=== PATIENT | female | born 1935 | race African-American/Black ===

== ENCOUNTER 2016-08-26 05:30 | Inpatient (IN) | payer MEDICARE ==
[~2016-08-26] VITALS: Ht 170.2 cm; Wt 83.0 kg
[~2016-08-26 05:30] MED LIST: ASPI-1093 PO; ATOR10TA84 PO; DOCU250C91 PO; PANT40TA25 PO; SENN-30 PO; VERA80 PO
[2016-08-26 06:01] LABS: GLUCOSE,POINT OF CARE 93 MG/DL (70-110)
[2016-08-26 06:21] LABS: BASOPHILS # (AUTO) 0.05 K/uL (0.00-0.20); BASOPHILS % (AUTO) 0.9 % (0.0-2.0); EOSINOPHILS # (AUTO) 0.14 K/uL (0.00-0.70); EOSINOPHILS % (AUTO) 2.45 % (1.0-6.0); HEMOGLOBIN 13.2 g/dL (12.0-16.0); LYMPHOCYTES # (AUTO) 1.9 K/uL (1.0-4.8); LYMPHOCYTES % (AUTO) 34.9 % (22.0-44.0); MEAN CORPUSCULAR HGB CONC 32.9 G/dL (31.0-37.0); MEAN CORPUSCULAR VOLUME 85 fL (80-100); MONOCYTES # (AUTO) 0.4 K/uL (0.1-1.0); NEUTROPHILS % (AUTO) 54.7 % (40.0-70.0); PLATELET COUNT (AUTO) 197 K/uL (150-450); RED BLOOD CELL COUNT(AUTO) 4.71 MIL/uL (4.00-5.20); RED CELL DISTRIBUTION WIDTH 17.4 % (11.5-14.5); WHITE BLOOD COUNT (AUTO) 5.5 K/uL (4.5-11.0)
[2016-08-26 06:31] LABS: ANION GAP 9 mmol/L (8-16); CALCIUM, TOTAL 9.4 mg/dL (8.8-10.5); CARBON DIOXIDE 29 mmol/L (22-29); CHLORIDE 106 mmol/L (98-107); CREATININE 0.96 mg/dL (0.60-1.30); GLOMERULAR FILTR. RATE CALC > 60 mL/min (>60); POTASSIUM 4.3 mmol/L (3.5-5.1); SODIUM SERUM 144 mmol/L (136-145); UREA NITROGEN, BLOOD 10 mg/dL (7-18)
[2016-08-26 06:37] LABS: ALBUMIN 3.2 g/dL (3.4-5.0); ASPARTATE AMINOTRANSFERASE 13 U/L (15-37); BILIRUBIN,TOTAL 0.3 mg/dL (0.1-1.0); CREATINE KINASE, TOTAL 39 U/L (26-192); TOTAL PROTEIN, SERUM 7.3 g/dL (6.4-8.2)
[2016-08-26 06:44] LABS: RBC MORPHOLOGY COMMENT ABNORMAL RBC MORPH
[2016-08-26 06:49] LABS: INR 1.1 (0.9-1.1); PROTHROMBIN TIME 11.1 SEC (9.4-11.6)
[2016-08-26 07:08] LABS: ALANINE AMINOTRANSFERASE 16 U/L (12-78)
[2016-08-26 07:26] LABS: B-TYPE NATRIURETIC PEPTIDE 12 pg/mL (0-100)
[2016-08-26 07:28] LABS: APPEARANCE,URINE CLOUDY (CLEAR); GLUCOSE, URINE (UA) NEGATIVE (NEGATIVE); KETONES,URINE NEGATIVE (NEGATIVE); LEUKOCYTE ESTERASE ,URINE SMALL (NEGATIVE); OCCULT BLOOD,URINE NEGATIVE (NEGATIVE); PROTEIN,URINE NEGATIVE (NEGATIVE)
[2016-08-26 07:43] LABS: ADD UA MICROSCOPIC YES
[2016-08-26 07:45] LABS: RBC,URINE None Seen /HPF (0-2)
[2016-08-26 07:46] LABS: SQUAMOUS EPITHELIAL CELL,UR Few /LPF (None Seen)
[2016-08-26] MEDS ORDERED: MAGNESIUM HYDROXIDE SUSPENSION 30 ML UDCUP PO PRN (19:15)
[2016-08-26] MEDS ORDERED: ACETAMINOPHEN 325 MG TABLET PO PRN (19:15)
[2016-08-26] MEDS ORDERED: ONDANSETRON HCL 4 MG/2 ML VIAL IVP PRN (19:15)
[2016-08-26] MEDS ORDERED: MORPHINE SULFATE 2 MG/ML SYRINGE IVP PRN (19:15)
[2016-08-26] MEDS ORDERED: SODIUM CHLORIDE 0.9% 1,000 ML IV ONE (19:15)
[2016-08-26] MEDS ORDERED: BISACODYL 10 MG RECTAL RECTAL SUPPOSITORY PR PRN (19:15)
[2016-08-26] MEDS ORDERED: HydrALAZINE HCL 20 MG/ML VIAL IVP PRN (19:15)
[2016-08-26] MEDS ORDERED: ZOLPIDEM TARTRATE 5 MG TABLET PO PRN (19:15)
[2016-08-26] MEDS ORDERED: HYDROCODONE/ACETAMINOPHEN 5-325 MG TABLET PO PRN (19:15)
[2016-08-26] MEDS ORDERED: CefTRIAXone 1 GM/DEXTROSE 50 ML IV SCH (20:00)
[2016-08-26 20:39] VITALS: BP 141/76
[2016-08-26] MEDS ORDERED: ATORVASTATIN CALCIUM 10 MG TABLET PO SCH (21:00)
[2016-08-26] MEDS ORDERED: SENNA 187 MG TABLET PO SCH (21:00)
[2016-08-26] MEDS: DOCUSATE SODIUM 100 MG CAPSULE PO SCH (21:41)
[2016-08-26 23:15] VITALS: BP 129/68
[2016-08-27] MEDS: HEPARIN SODIUM,PORCINE 5,000 UNITS/ML VIAL SQ SCH ×3 (00:35→15:43)
[2016-08-27 04:52] VITALS: BP 141/88
[2016-08-27 07:19] VITALS: BP 150/76
[2016-08-27] MEDS: DOCUSATE SODIUM 100 MG CAPSULE PO SCH (08:41)
[2016-08-27] MEDS ORDERED: ASPIRIN 81 MG EC TABLET PO SCH (09:00)
[2016-08-27] MEDS ORDERED: PANTOPRAZOLE SODIUM 40 MG DR TABLET PO SCH (09:00)
[2016-08-27 11:04] VITALS: BP 133/76
[2016-08-27] MEDS ORDERED: LEVO500 PO (13:43)
[2016-08-27 15:26] VITALS: BP 123/79
== END 2016-08-27 19:39 | disposition home or self-care (01) | DRG 640 ==
LOC: EMS 05:31 → 5N 18:15
PROVIDERS: ADMIT Internal Medicine; ATTEND Internal Medicine
DX: E86.0 Dehydration (principal); G93.41 Metabolic encephalopathy; N39.0 Urinary tract infection, site not specified; I44.0 Atrioventricular block, first degree; I70.0 Atherosclerosis of aorta; J32.0 Chronic maxillary sinusitis; E78.5 Hyperlipidemia, unspecified; I10 Essential (primary) hypertension; Z91.041 Radiographic dye allergy status; Z79.899 Other long term (current) drug therapy; Z79.82 Long term (current) use of aspirin; Z86.73 Personal history of transient ischemic attack (TIA), and cerebral infarction without residual deficits
CPT/HCPCS: 51702; 70450; 82962; 93005; 96365; 99285; J0696; J1644; J7030

== ENCOUNTER 2017-03-12 05:19 | Inpatient (IN) | payer MEDICARE ==
[~2017-03-12] VITALS: Ht 160 cm; Wt 79.8 kg
[~2017-03-12 05:19] MED LIST changes: -ASPI-1093 PO; +ASPI-1182 PO; -DOCU250C91 PO; +LEVO500 PO; -PANT40TA25 PO; +SENN-175 PO; -SENN-30 PO
[2017-03-12] MEDS ORDERED: 0.9% SODIUM CHLORIDE 10 ML SYRINGE IVP PRN (05:30)
[2017-03-12 05:48] LABS: EOSINOPHILS % (AUTO) 3.8 % (1.0-6.0); HEMOGLOBIN 13.8 g/dL (12.0-16.0); LYMPHOCYTES # (AUTO) 3.1 K/uL (1.0-4.8); LYMPHOCYTES % (AUTO) 53.3 % (22.0-44.0); MEAN CORPUSCULAR HEMOGLOBIN 28.8 pg (26.0-34.0); MEAN CORPUSCULAR HGB CONC 33.7 G/dL (31.0-37.0); MEAN CORPUSCULAR VOLUME 85 fL (80-100); MONOCYTES # (AUTO) 0.5 K/uL (0.1-1.0); MONOCYTES % (AUTO) 8.1 % (2.0-9.0); NEUTROPHILS % (AUTO) 33.8 % (40.0-70.0); PLATELET COUNT (AUTO) 217 K/uL (150-450); RED BLOOD CELL COUNT(AUTO) 4.81 MIL/uL (4.00-5.20); RED CELL DISTRIBUTION WIDTH 17.1 % (11.5-14.5); WHITE BLOOD COUNT (AUTO) 5.8 K/uL (4.5-11.0)
[2017-03-12 05:54] LABS: ANION GAP 7 mmol/L (8-16); CALCIUM, TOTAL 9.3 mg/dL (8.8-10.5); CARBON DIOXIDE 27 mmol/L (22-29); CHLORIDE 106 mmol/L (98-107); CREATININE 0.89 mg/dL (0.60-1.30); GLOMERULAR FILTR. RATE CALC > 60 mL/min (>60); POTASSIUM 3.8 mmol/L (3.5-5.1); SODIUM SERUM 140 mmol/L (136-145); UREA NITROGEN, BLOOD 15 mg/dL (7-18)
[2017-03-12 05:56] LABS: PROTHROMBIN TIME 10.7 SEC (9.4-11.6)
[2017-03-12 06:08] LABS: ALANINE AMINOTRANSFERASE 16 U/L (12-78); ALBUMIN 3.6 g/dL (3.4-5.0); ASPARTATE AMINOTRANSFERASE 15 U/L (15-37); BILIRUBIN,TOTAL 0.3 mg/dL (0.1-1.0); CREATINE KINASE, TOTAL 77 U/L (26-192)
[2017-03-12 06:20] LABS: APPEARANCE,URINE CLEAR (CLEAR); GLUCOSE, URINE (UA) NEGATIVE (NEGATIVE); KETONES,URINE NEGATIVE (NEGATIVE); LEUKOCYTE ESTERASE ,URINE NEGATIVE (NEGATIVE); OCCULT BLOOD,URINE NEGATIVE (NEGATIVE); PH,URINE 5.5 (5.0-8.0); PROTEIN,URINE NEGATIVE (NEGATIVE)
[2017-03-12 06:21] LABS: ADD UA MICROSCOPIC NO
[2017-03-12 06:32] LABS: CREATINE KINASE MB 0.9 ng/mL (0-5)
[2017-03-12] MEDS ORDERED: ASPIRIN 325 MG TABLET PO ONE (06:45)
[2017-03-12] MEDS ORDERED: ONDANSETRON HCL 4 MG/2 ML VIAL IVP PRN ×2 (08:15→14:30)
[2017-03-12] MEDS ORDERED: ACETAMINOPHEN 325 MG TABLET PO PRN ×2 (08:15→14:30)
[2017-03-12 12:43] VITALS: BP 149/78
[2017-03-12] MEDS ORDERED: BISACODYL 10 MG RECTAL RECTAL SUPPOSITORY PR PRN (14:30)
[2017-03-12] MEDS ORDERED: ALBUTEROL SULFATE 2.5 MG/0.5 ML NEB SOLUTION NEB PRN (14:30)
[2017-03-12] MEDS ORDERED: MORPHINE SULFATE 2 MG/ML SYRINGE IVP PRN (14:30)
[2017-03-12] MEDS ORDERED: HYDROCODONE/ACETAMINOPHEN 5-325 MG TABLET PO PRN (14:30)
[2017-03-12] MEDS ORDERED: IPRATROPIUM BROMIDE 0.5 MG/2.5 ML NEB SOLUTION NEB PRN (14:30)
[2017-03-12] MEDS ORDERED: ZOLPIDEM TARTRATE 5 MG TABLET PO PRN (14:30)
[2017-03-12] MEDS ORDERED: MAGNESIUM HYDROXIDE SUSPENSION 30 ML UDCUP PO PRN (14:30)
[2017-03-12 15:59] VITALS: BP 138/64
[2017-03-12] MEDS: HEPARIN SODIUM,PORCINE 5,000 UNITS/ML VIAL SQ SCH ×2 (16:09→23:19)
[2017-03-12 19:49] VITALS: BP 132/62
[2017-03-12] MEDS: DOCUSATE SODIUM 100 MG CAPSULE PO SCH (20:41)
[2017-03-13] VITALS: BP 155/76
[2017-03-13 04:42] VITALS: BP 156/77
[2017-03-13 07:30] VITALS: BP 169/76
[2017-03-13] MEDS: DOCUSATE SODIUM 100 MG CAPSULE PO SCH (08:39)
[2017-03-13] MEDS: HEPARIN SODIUM,PORCINE 5,000 UNITS/ML VIAL SQ SCH ×2 (08:39→17:54)
[2017-03-13] MEDS ORDERED: PANTOPRAZOLE SODIUM 40 MG/VIAL IVP SCH (09:00)
[2017-03-13] MEDS ORDERED: ASPIRIN 81 MG EC TABLET PO SCH (09:00)
[2017-03-13] MEDS ORDERED: VERAPAMIL HCL 120 MG ER TABLET PO ONE ×2 (11:15→17:30)
[2017-03-13] MEDS ORDERED: ATORVASTATIN CALCIUM 20 MG TABLET PO ONE (11:15)
[2017-03-13 11:38] VITALS: BP 132/61
[2017-03-13 15:39] VITALS: BP 126/77
[2017-03-13] MEDS ORDERED: VERA120C3 PO (17:47)
[2017-03-13] MEDS ORDERED: ASPI81 PO (17:47)
[2017-03-13] MEDS ORDERED: ATOR20TA86 PO (18:29)
[2017-03-13] MEDS ORDERED: ATORVASTATIN CALCIUM 20 MG TABLET PO SCH (21:00)
[2017-03-14] MEDS ORDERED: VERAPAMIL HCL 120 MG ER TABLET PO SCH (09:00)
[2017-03-14] MEDS ORDERED: ASPIRIN 325 MG TABLET PO SCH (09:00)
== END 2017-03-13 18:55 | disposition home or self-care (01) | DRG 69 ==
LOC: EMS 05:20 → 5N 11:40
PROVIDERS: ADMIT Hospitalist; ATTEND Hospitalist
DX: G45.9 Transient cerebral ischemic attack, unspecified (principal); I10 Essential (primary) hypertension; E78.5 Hyperlipidemia, unspecified; R29.810 Facial weakness; Z79.82 Long term (current) use of aspirin; Z86.73 Personal history of transient ischemic attack (TIA), and cerebral infarction without residual deficits; Z91.041 Radiographic dye allergy status
CPT/HCPCS: 70551; 93005; 93306; 93880; 99291; C9113; J1644

== ENCOUNTER 2017-06-27 01:18 | Emergency (ER) | payer MEDICARE ==
[~2017-06-27] VITALS: Ht 175.3 cm; Wt 84.0 kg
[~2017-06-27 01:18] MED LIST changes: -ASPI-1182 PO; +ASPI81 PO; -ATOR10TA84 PO; +ATOR20TA86 PO; -LEVO500 PO; -SENN-175 PO; +VERA120C3 PO; -VERA80 PO
[2017-06-27 05:04] LABS: BASOPHILS # (AUTO) 0.06 K/uL (0.00-0.20); EOSINOPHILS # (AUTO) 0.14 K/uL (0.00-0.70); EOSINOPHILS % (AUTO) 2.18 % (1.0-6.0); HEMATOCRIT 37.5 % (36-46); HEMOGLOBIN 12.2 g/dL (12.0-16.0); LYMPHOCYTES # (AUTO) 2.3 K/uL (1.0-4.8); MEAN CORPUSCULAR HGB CONC 32.7 G/dL (31.0-37.0); MEAN CORPUSCULAR VOLUME 86 fL (80-100); MONOCYTES # (AUTO) 0.5 K/uL (0.1-1.0); MONOCYTES % (AUTO) 8.3 % (2.0-9.0); NEUTROPHILS # (AUTO) 3.2 K/uL (1.8-7.7); NEUTROPHILS % (AUTO) 51.5 % (40.0-70.0); PLATELET COUNT (AUTO) 211 K/uL (150-450); RED BLOOD CELL COUNT(AUTO) 4.37 MIL/uL (4.00-5.20); RED CELL DISTRIBUTION WIDTH 16.3 % (11.5-14.5)
[2017-06-27 05:08] LABS: ANION GAP 5 mmol/L (8-16); CALCIUM, TOTAL 8.8 mg/dL (8.8-10.5); CARBON DIOXIDE 28 mmol/L (22-29); CHLORIDE 108 mmol/L (98-107); CREATININE 0.93 mg/dL (0.60-1.30); GLOMERULAR FILTR. RATE CALC > 60 mL/min (>60); GLUCOSE,RANDOM 96 mg/dL (70-110); POTASSIUM 3.6 mmol/L (3.5-5.1); SODIUM SERUM 141 mmol/L (136-145); UREA NITROGEN, BLOOD 16 mg/dL (7-18)
[2017-06-27 05:15] LABS: ALANINE AMINOTRANSFERASE 25 U/L (12-78); ALBUMIN 3.1 g/dL (3.4-5.0); ALKALINE PHOSPHATASE 93 U/L (46-116); ASPARTATE AMINOTRANSFERASE 20 U/L (15-37); BILIRUBIN,TOTAL 0.2 mg/dL (0.1-1.0); TOTAL PROTEIN, SERUM 7.1 g/dL (6.4-8.2)
[2017-06-27 05:45] LABS: B-TYPE NATRIURETIC PEPTIDE 15 pg/mL (0-100)
[2017-06-27 06:06] VITALS: BP 144/75
== END 2017-06-27 07:00 | disposition home or self-care (01) ==
LOC: EMS 01:20
DX: M25.562 Pain in left knee (principal); M25.561 Pain in right knee; I10 Essential (primary) hypertension; Z86.73 Personal history of transient ischemic attack (TIA), and cerebral infarction without residual deficits; Z79.82 Long term (current) use of aspirin; Z91.041 Radiographic dye allergy status
CPT/HCPCS: 93005; 99285

== ENCOUNTER 2017-10-16 01:48 | Emergency (ER) | payer MEDICARE ==
[~2017-10-16] VITALS: Ht 165.1 cm; Wt 75.3 kg
[~2017-10-16 01:48] MED LIST changes: -VERA120C3 PO
[2017-10-16 02:34] LABS: BASOPHILS % (AUTO) 0.4 % (0.0-2.0); EOSINOPHILS % (AUTO) 0.1 % (1.0-6.0); HEMATOCRIT 40.5 % (36-46); HEMOGLOBIN 13.5 g/dL (12.0-16.0); LYMPHOCYTES # (AUTO) 1.1 K/uL (1.0-4.8); LYMPHOCYTES % (AUTO) 12.4 % (22.0-44.0); MEAN CORPUSCULAR HEMOGLOBIN 26.3 pg (26.0-34.0); MEAN CORPUSCULAR HGB CONC 33.3 G/dL (31.0-37.0); MEAN CORPUSCULAR VOLUME 79 fL (80-100); MONOCYTES # (AUTO) 0.9 K/uL (0.1-1.0); MONOCYTES % (AUTO) 10.2 % (2.0-9.0); NEUTROPHILS # (AUTO) 6.8 K/uL (1.8-7.7); NEUTROPHILS % (AUTO) 76.9 % (40.0-70.0); PLATELET COUNT (AUTO) 235 K/uL (150-450); RED BLOOD CELL COUNT(AUTO) 5.14 MIL/uL (4.00-5.20); RED CELL DISTRIBUTION WIDTH 19.7 % (11.5-14.5)
[2017-10-16 02:40] LABS: CALCIUM, TOTAL 9.5 mg/dL (8.8-10.5); CREATININE 1.51 mg/dL (0.60-1.30)
[2017-10-16 02:41] LABS: PROTHROMBIN TIME 10.3 SEC (9.4-11.6)
[2017-10-16] MEDS ORDERED: POTASSIUM CHLORIDE 20 MEQ ER TABLET PO ONE (02:45)
[2017-10-16] MEDS ORDERED: ASPIRIN 325 MG EC TABLET PO ONE (02:45)
[2017-10-16 03:07] LABS: ALBUMIN 2.9 g/dL (3.4-5.0); BILIRUBIN,TOTAL 0.2 mg/dL (0.1-1.0); CKMB RELATIVE INDEX 4.3 % (0.0-4.0); CREATINE KINASE MB 6.2 ng/mL (0-5); TOTAL PROTEIN, SERUM 7.8 g/dL (6.4-8.2)
[2017-10-16 04:06] LABS: APPEARANCE,URINE CLEAR (CLEAR)
[2017-10-16 04:07] LABS: BILIRUBIN,URINE PRELIM. POSITIVE (NEGATIVE); GLUCOSE, URINE (UA) NEGATIVE (NEGATIVE); KETONES,URINE TRACE mg/dL (NEGATIVE); LEUKOCYTE ESTERASE ,URINE NEGATIVE (NEGATIVE); NITRATE,URINE NEGATIVE (NEGATIVE); OCCULT BLOOD,URINE TRACE-INTA (NEGATIVE); PROTEIN,URINE POS 1+ (NEGATIVE)
[2017-10-16 04:12] LABS: AMPHET/METH SCREEN,URINE NEGATIVE (NEGATIVE); BARBITURATE SCREEN, URINE NEGATIVE (NEGATIVE); BENZODIAZEPINES SCREEN,URINE NEGATIVE (NEGATIVE); CANNABINOID SCREEN,URINE NEGATIVE (NEGATIVE); COCAINE SCREEN,URINE NEGATIVE (NEGATIVE); METHADONE SCREEN, URINE NEGATIVE (NEGATIVE); OPIATE SCREEN,URINE NEGATIVE (NEGATIVE)
[2017-10-16 04:15] LABS: PHENCYCLIDINE SCREEN,URINE NEGATIVE (NEGATIVE)
[2017-10-16 04:17] LABS: BACTERIA,URINE None Seen /HPF (None Seen); WBC,URINE 0-2 /HPF (0-5)
[2017-10-16 04:19] LABS: FINE GRANULAR CASTS,URINE 0-2 /LPF (None Seen); SQUAMOUS EPITHELIAL CELL,UR Few /LPF (None Seen); YEAST,URINE Rare /HPF (None Seen)
[2017-10-16] MEDS ORDERED: POTASSIUM CHLORIDE 10% 40 MEQ/30 ML LIQUID UDCUP PO ONE (04:45)
[2017-10-16 05:50] VITALS: BP 132/71
== END 2017-10-16 06:32 | disposition short-term general hospital (02) ==
LOC: EMS 01:49
DX: G45.9 Transient cerebral ischemic attack, unspecified (principal); I10 Essential (primary) hypertension; I25.10 Atherosclerotic heart disease of native coronary artery without angina pectoris; E11.9 Type 2 diabetes mellitus without complications; Z91.041 Radiographic dye allergy status
CPT/HCPCS: 36415; 70450; 70496; 71045; 73030; 80053; 80307; 81001; 82140; 82550; 82553; 84484; 85025; 85610; 85730; 93005; 99285; G0480

== ENCOUNTER 2018-03-21 00:43 | Emergency (ER) | payer MEDICARE ==
[~2018-03-21] VITALS: Ht 162.6 cm; Wt 77.3 kg
[2018-03-21] MEDS ORDERED: BACITRACIN 0.9 GM PACKET OINTMENT TP ONE (01:30)
[2018-03-21] MEDS ORDERED: BUPIVACAINE HCL/PF 0.25% 10 ML VIAL INJ ONE (01:45)
[2018-03-21 02:09] LABS: BASOPHILS % (AUTO) 1.1 % (0.0-2.0); EOSINOPHILS % (AUTO) 2.4 % (1.0-6.0); HEMATOCRIT 37.1 % (36-46); HEMOGLOBIN 12.3 g/dL (12.0-16.0); LYMPHOCYTES # (AUTO) 2.5 K/uL (1.0-4.8); LYMPHOCYTES % (AUTO) 40.7 % (22.0-44.0); MEAN CORPUSCULAR HGB CONC 33.1 G/dL (31.0-37.0); MEAN CORPUSCULAR VOLUME 85 fL (80-100); MONOCYTES # (AUTO) 0.4 K/uL (0.1-1.0); MONOCYTES % (AUTO) 7.1 % (2.0-9.0); NEUTROPHILS % (AUTO) 48.7 % (40.0-70.0); PLATELET COUNT (AUTO) 213 K/uL (150-450); RED BLOOD CELL COUNT(AUTO) 4.38 MIL/uL (4.00-5.20)
[2018-03-21 02:23] LABS: CALCIUM, TOTAL 8.5 mg/dL (8.8-10.5); CREATININE 1.05 mg/dL (0.60-1.30); POTASSIUM 3.5 mmol/L (3.5-5.1)
[2018-03-21 02:29] LABS: ALBUMIN 3.3 g/dL (3.4-5.0); BILIRUBIN,TOTAL 0.2 mg/dL (0.1-1.0); TOTAL PROTEIN, SERUM 7.4 g/dL (6.4-8.2)
[2018-03-21 03:01] VITALS: BP 167/93
== END 2018-03-21 03:57 | disposition home or self-care (01) ==
LOC: EMS 00:44
DX: S01.111A Laceration without foreign body of right eyelid and periocular area, initial encounter (principal); R42 Dizziness and giddiness; I25.10 Atherosclerotic heart disease of native coronary artery without angina pectoris; E11.9 Type 2 diabetes mellitus without complications; I10 Essential (primary) hypertension; Z86.73 Personal history of transient ischemic attack (TIA), and cerebral infarction without residual deficits; Z91.041 Radiographic dye allergy status; Z79.82 Long term (current) use of aspirin; W07.XXXA Fall from chair, initial encounter; Y93.89 Activity, other specified; Y92.89 Other specified places as the place of occurrence of the external cause; Y99.8 Other external cause status
CPT/HCPCS: 12011; 36415; 70450; 80053; 84484; 85025; 93005; 99285; J3490